=== PATIENT | female | born 1985 | race Caucasian/White ===

== ENCOUNTER 2023-06-09 10:47 | Outpatient (AMB) | payer BC, SELFPAY ==
[2023-06-09 10:51] VITALS: BP 124/68; PULSE 69; O2SAT 100; BMI 32.9
--- NOTE | 2023-06-09 10:51 | MHC.OFFVIS ---
Intake Vital Signs 06/09/23 10:51 Height 5 ft 7 in Weight 210 lb BMI 32.9 BP 124/68 Blood Pressure Location Rt brachial Position Sitting Pulse 69 Pulse Source Pulse Oximeter Pulse Oximetry (%) 100 Oxygen Delivery Method Room Air Intake Visit Reasons: asthma French Folder Required: No Aeronautical Engineer: Aeronautical Engineer offered & declined Accompanied by: Self / Same As Patient Allergies No Known Allergies Allergy (Verified 06/09/23 10:58) Medication List - Last Reconciled 06/09/23 by Denise Cantrell LPN albuterol sulfate 90 mcg/actuation 2 puffs inhalation Q4-6H PRN HPI asthma HPI Details Della is pleasant 37 year old female, never smoker, with underlying asthma. She is 6 weeks , uneventful . She reports symptoms of exercise induced asthma as a child, prescribed albuterol MDI PRN with resolution of symptoms as an adult. She reports symptoms of cough began shortly after section and have continued. She was recently treated with azithromycin and prednisone for bronchitic symptoms, sinus congestion, however notes minimal improvement in symptoms. She denies any wheezing or dyspnea. She has been using an albuterol MDI q 4 hours for persistent chest tightness with resolution in symptoms. She also reports seasonal allergies, managed with OTC medications. She denies any pertinent family history. She denies any occupational exposures. [facility] Social History (Updated 06/09/23 @ 11:01 by Denise Cantrell LPN) Patient Tobacco Use Status: Never used Tobacco Review of Systems Const Denies chills, Denies excessive sweating, Denies fever(s), Denies headache(s) and Denies night sweats Eyes Denies dry eyes, Denies irritation and Denies itchy eyes ENT Reports Normal hearing present, Denies headache(s), Denies nasal congestion, Denies nasal discharge, Denies post nasal drip and Denies sore throat Card Denies chest pain, Denies chest pain at rest, Denies chest pain with activity, Denies claudication, Denies leg edema, Denies orthopnea and Denies paroxysmal nocturnal dyspnea Resp Denies chest congestion, Denies excessive phlegm production, Denies pain on inspiration, Denies pain with cough, Denies stridor and Denies wheezing Musc Denies myalgias Neuro Reports Normal hearing present and Denies headache(s) Endo Denies excessive sweating Francis/Lymph Denies lymphadenopathy Aller/Immun Denies itchy eyes, Denies seasonal rhinorrhea and Denies wheezing Physical Exam Vital Signs: Last Vital Signs Pulse 69 06/09/23 10:51 BP 124/68 06/09/23 10:51 Pulse Ox 100 06/09/23 10:51 Oxygen Delivery Method Room Air 06/09/23 10:51 BMI result Body Mass Index 32.9 Const General: cooperative, healthy appearing, comfortable, no acute distress, well developed and alert Orientation/consciousness: patient oriented x3 Limitations: no limitations HEENT Head: Yes normal to inspection, Yes normocephalic and Yes atraumatic Ears: hearing grossly normal bilaterally and external ears normal Eyes General: appearance normal, both eyes and all related structures Eyelids: Yes eyelids normal Sclerae: sclerae normal EOM: EOMs intact bilaterally Neck Neck: Yes normal visual inspection and Yes no lymphadenopathy Lymphatic: no lymphadenopathy noted Chest Chest palpation & inspection: normal inspection of the chest Resp Other: diminished lung sounds, improved with nebulizer Effort & Inspection: normal respiratory effort, able to speak in complete sentences, no audible wheezes, Actively coughing, no stridor, not tachypneic, no tripod positioning and no use of accessory muscles Auscultation: diminished lung sounds Cardio Jugular venous distension: no JVD Rate: regular rate Rhythm: regular rhythm Skin Other: warm, dry General skin exam: no rashes or lesions noted Neuro General: patient oriented x3 Cranial nerves: Yes Normal hearing present Cognition (Neuro): normal cognition Gait exam (Neuro): Normal gait present Extrem General: Yes normal to inspection, Yes capillary refill normal, Yes no clubbing, cyanosis or edema and Yes no pedal edema Psych Appearance: grossly normal and well kempt Speech and movement: Normal speech and movement present and Clear speech present Affect: normal affect Attitude: cooperative Thought process: Normal thought process present Thought content: Normal thought content present Insight: Good insight present (Psych) Judgement: Good judgement present (Psych) Office Procedures Nebulizer Treatment Nebulizer Treatment [id number]/MDI RX initial, or Nebulizer Subsequent Treatment Office Meds ipratropium 0.5 mg-albuterol 3 mg (2.5 mg base)/3 mL nebulization soln Performing Provider: Gunjan Aranda NP Performing Location: [facility] Administered by: Denise Cantrell LPN on 06/09/23 08:47 Dose Route Admin Location Dispensed Lot Number Expiration Date NDC Stem Sizer 3 mL inhalation 3 mL [id number] 03/21/25 71195-034-08 [employer] Assessment & Plan Assessment & Plan (1) Asthma: Code(s): J45.909 - Unspecified asthma, uncomplicated (2) Environmental allergies: Code(s): Z91.09 - Other allergy status, other than to drugs and biological substances Plan Della's symptoms are likely related to underlying asthma/reactive airway disease. Symptoms improved after nebulizer. Will send for PFT and RAST. Will empirically trial on Symbicort and was given a nebulizer in office today. All questions were answered and patient is in agreement of plan. Will follow up to review results and response to ICS/LABA. Orders: Orders Resp Allergy Profile Region I 06/09/23 Z91.09 - Other allergy status, other than to drugs and biological substances Immunoglobulin E 06/09/23 Z91.09 - Other allergy status, other than to drugs and biological substances Complete Blood Count Auto Diff 06/09/23 J45.909 - Unspecified asthma, uncomplicated, Z91.09 - Other allergy status, other than to drugs and biological substances AMB Nebulizer Treatment 06/09/23 J45.909 - Unspecified asthma, uncomplicated Medications: New albuterol sulfate 2.5 mg (3 mL) inhalation Q4-6H PRN 90 mL 3RF shortness of breath or wheezing budesonide-formoterol 80-4.5 mcg/actuation (Symbicort) 2 puffs inhalation Q12H 10.2 grams 3RF Coding Level of Care Code New Pt Level 4 (05463) Diagnoses Asthma J45.909 Environmental allergies Z91.09 CPT Codes Nebulizer Treatment - Nebulizer Treatment, initial or subsequent: [id number]-Belkraeiz/MDI RX initial, or Nebulizer Subsequent Treatment ([id number])
== END 2023-06-09 13:44 | disposition home or self-care (01) ==
PROVIDERS: PCP Internal Medicine; Referring Provider Physician Assistant Medical; Visit Provider Nurse Practitioner Family
DX: J45.909 Unspecified asthma, uncomplicated (principal); Z91.09 Other allergy status, other than to drugs and biological substances
CPT/HCPCS: 99204

== ENCOUNTER → 2023-06-09 10:47 | Outpatient (BNVA) | payer BC, SELFPAY | PROVIDERS: PCP Internal Medicine; Referring Provider Physician Assistant Medical; Visit Provider Nurse Practitioner Family ==

== ENCOUNTER 2023-06-09 11:48 | Outpatient (REF) | payer BC, SELFPAY ==
[2023-06-09 14:26] LABS: MANUAL DIFF FLAG NO
[2023-06-09 14:30] LABS: Basophils Percent Auto 0.5 % (0-2); Eosinophils Absolute Auto 0.2 X10*3/uL (0.0-0.4); Eosinophils Percent Auto 2.4 % (0-4); Hematocrit 39.4 % (37.0-47.0); Hemoglobin 13.7 g/dl (12.0-16.0); Imm Gran Abs Auto 0.04 X10*3/uL (0.00-0.03); Imm Gran Pct Auto 0.5 % (0.0-0.4); Lymphocytes Absolute Auto 4.2 X10*3/uL (1.2-4.9); Lymphocytes Percent Auto 57.4 % (20-40); Mean Corpuscular HGB Conc 34.8 g/dl (31.0-35.0); Mean Corpuscular Hemoglobin 29.7 pg (27.0-33.0); Mean Corpuscular Volume 85.3 fL (80.0-98.0); Mean Platelet Volume 9.5 fL (9.4-12.3); Monocytes Absolute Auto 0.5 X10*3/uL (0.1-1.2); Monocytes Percent Auto 6.2 % (2-11); Neutrophils Absolute Auto 2.4 x10*3/uL (2.0-8.3); Platelet Count 240 X10*3/uL (160-400); Red Blood Count 4.62 X10*6/uL (4.20-5.50); Red Cell Distribution Width 12.4 % (11.0-16.0); White Blood Count 7.4 X10*3/uL (4.8-10.8)
[2023-06-11 05:14] LABS: Immunoglobulin E 64 kU/L (<OR=114)
[2023-06-11 23:07] LABS: Class Alternaria alternata 0; Class Aspergillus fumigatus 0; Class Bermuda Grass 0; Class Birch 0; Class Cat Dander 0; Class Cladosporium herbarum 0; Class Cockroach 0; Class Common Ragweed 0; Class Cottonwood 0; Class Derm. pterony 0; Class Dermatophagoides farinae 0; Class Dog Dander 0; Class Elm 0; Class Maple Box Elder 0; Class Mountain Cedar 0; Class Mouse Urine Protein 0; Class Mugwort 0; Class Oak 0; Class Penicillium crysogenum 0; Class Rough Pigweed 0; Class Sheep Sorrel 0; Class Sycamore 0; Class Timothy Grass 0; Class Walnut Tree 0; Class White Ash 0; Class White Mulberry 0; D001 IgE D pteronyssinus <0.10 kU/L; D002 - IgE D farinae <0.10 kU/L; E001 - IgE Cat Dander <0.10 kU/L; E005 - IgE Dog Dander <0.10 kU/L; E072-IgE Mouse Urine <0.10 kU/L; G002 IgE Bermuda Grass <0.10 kU/L; G006 - IgE Timothy Grass <0.10 kU/L; I006-IgE Cockroach, German <0.10 kU/L; Immunoglobulin E 67 kU/L (<OR=114); M001 IgE Penicillium chrysogen <0.10 kU/L; M002 - IgE Cladosporium herbar <0.10 kU/L; M003 - IgE Aspergillus fumigat <0.10 kU/L; M006 - IgE Alternaria alternat <0.10 kU/L; T001 IgE Maple/Box Elder <0.10 kU/L; T003 IgE Common Silver Birch <0.10 kU/L; T006 - IgE Cedar, Mountain <0.10 kU/L; T007 - IgE Oak, White <0.10 kU/L; T008 IgE Elm, American <0.10 kU/L; T010 - IgE Walnut <0.10 kU/L; T011 - IgE Maple Leaf Sycamore <0.10 kU/L; T014 - IgE Cottonwood <0.10 kU/L; T015 - IgE Ash, White <0.10 kU/L; T070 - IgE White Mulberry <0.10 kU/L; W001 - IgE Ragweed, Short <0.10 kU/L; W006 - IgE Mugwort <0.10 kU/L; W014 IgE Pigweed, Common <0.10 kU/L; W018 IgE Sheep Sorrel <0.10 kU/L
== END 2023-06-09 11:49 | disposition home or self-care (01) ==
LOC: HO.WFDLDS 11:48
PROVIDERS: Visit Provider Nurse Practitioner Family
DX: J45.909 Unspecified asthma, uncomplicated (principal); Z91.09 Other allergy status, other than to drugs and biological substances
CPT/HCPCS: 36415; 82785; 85025; 86003; 94640

== ENCOUNTER 2023-07-22 10:36 | Outpatient (AMB) | payer BC, SELFPAY ==
--- NOTE | 2023-07-22 09:11 | A.OFFVIS_ITS ---
Intake Vital Signs 07/22/23 10:39 Height 5 ft 7 in Weight 208 lb BMI 32.6 BP 112/62 Blood Pressure Location Lt brachial Position Sitting Pulse 77 Pulse Source Pulse Oximeter Pulse Oximetry (%) 98 Oxygen Delivery Method Room Air Intake Visit Reasons: Asthma Ice Cream Scooper Required: No Youth Development Professional: Youth Development Professional offered & declined Accompanied by: Self / Same As Patient Allergies No Known Allergies Allergy (Verified 07/22/23 10:43) Medication List - Last Reconciled 07/22/23 by Denise Cantrell LPN albuterol sulfate 2.5 mg (3 mL) inhalation Q4-6H PRN albuterol sulfate 90 mcg/actuation 2 puffs inhalation Q4-6H PRN budesonide-formoterol 80-4.5 mcg/actuation (Symbicort) 2 puffs inhalation Q12H HPI Asthma HPI Details Della is pleasant 37 year old female, never smoker, with underlying asthma since childhood. She was recently treated with azithromycin and prednisone for bronchitic symptoms, with minimal improvement in symptoms. At the last visit she was treated with and reports moderate improvement in symptoms but continues with intermittent chest tightness as well as daily use of albuterol. She also reports persistent throat clearing and post nasal drip. Today she presents for close follow up as well as review of RAST. Her PFT is scheduled in 4 weeks. [facility] Social History (Updated 07/22/23 @ 10:44 by Denise Cantrell LPN) Patient Tobacco Use Status: Never used Tobacco Review of Systems Const Denies chills, Denies excessive sweating, Denies fever(s), Denies headache(s) and Denies night sweats Eyes Denies dry eyes, Denies irritation and Denies itchy eyes ENT Reports Normal hearing present, Denies headache(s), Denies nasal congestion, Denies nasal discharge, Denies post nasal drip and Denies sore throat Card Denies chest pain, Denies chest pain at rest, Denies chest pain with activity, Denies claudication, Denies leg edema, Reports dyspnea on exertion, Denies orthopnea and Denies paroxysmal nocturnal dyspnea Resp Denies chest congestion, Denies excessive phlegm production, Denies pain on inspiration, Denies pain with cough, Reports dyspnea on exertion, Denies stridor and Reports wheezing Musc Denies myalgias Neuro Reports Normal hearing present and Denies headache(s) Endo Denies excessive sweating Francis/Lymph Denies lymphadenopathy Aller/Immun Denies itchy eyes, Denies seasonal rhinorrhea and Reports wheezing Physical Exam Vital Signs: Last Vital Signs Pulse 77 07/22/23 10:39 BP 112/62 07/22/23 10:39 Pulse Ox 98 07/22/23 10:39 Oxygen Delivery Method Room Air 07/22/23 10:39 BMI result Body Mass Index 32.6 Const General: cooperative, healthy appearing, comfortable, no acute distress, well developed and alert Orientation/consciousness: patient oriented x3 Limitations: no limitations HEENT Head: Yes normal to inspection, Yes normocephalic and Yes atraumatic Ears: hearing grossly normal bilaterally and external ears normal Eyes General: appearance normal, both eyes and all related structures Eyelids: Yes eyelids normal Sclerae: sclerae normal EOM: EOMs intact bilaterally Neck Neck: Yes normal visual inspection and Yes no lymphadenopathy Lymphatic: no lymphadenopathy noted Chest Chest palpation & inspection: normal inspection of the chest Resp Effort & Inspection: normal respiratory effort, able to speak in complete sentences, no audible wheezes, no cough, no stridor, not tachypneic, no tripod positioning and no use of accessory muscles Auscultation: clear to auscultation bilaterally Cardio Jugular venous distension: no JVD Rate: regular rate Rhythm: regular rhythm Skin Other: warm, dry General skin exam: no rashes or lesions noted Neuro General: patient oriented x3 Cranial nerves: Yes Normal hearing present Cognition (Neuro): normal cognition Gait exam (Neuro): Normal gait present Extrem General: Yes normal to inspection, Yes capillary refill normal, Yes no clubbing, cyanosis or edema and Yes no pedal edema Psych Appearance: grossly normal and well kempt Speech and movement: Normal speech and movement present and Clear speech present Affect: normal affect Attitude: cooperative Thought process: Normal thought process present Thought content: Normal thought content present Insight: Good insight present (Psych) Judgement: Good judgement present (Psych) Assessment & Plan Assessment & Plan (1) Asthma: Code(s): J45.909 - Unspecified asthma, uncomplicated (2) Post-nasal drip: Code(s): R09.82 - Postnasal drip Plan RAST negative. Della reports significant improvements in bronchitic symptoms, however continues with daily albuterol use for chest tigthness and dyspnea. Will increase symbicort to 160 mcg as well as trial ipratropium nasal spray. All questions were answered and patient is in agreement of plan. Will follow up to review PFT and response to increased symbicort dose or sooner if needed. Medications: New budesonide-formoterol 160-4.5 mcg/actuation (Symbicort) 2 puffs inhalation Q12H 10.2 grams 3RF albuterol sulfate 90 mcg/actuation 2 puffs inhalation Q4-6H PRN 1 ea 3RF wheezing ipratropium bromide administer into each nostril 2 sprays intranasal BID 30 mL 3RF albuterol sulfate 90 mcg/actuation 2 puffs inhalation Q4-6H PRN 8.5 grams 3RF shortness of breath or wheezing Coding Level of Care Code Est Pt Level 3 (10781) Diagnoses Asthma J45.909 Post-nasal drip R09.82
[2023-07-22 10:39] VITALS: BP 112/62; PULSE 77; O2SAT 98; BMI 32.6
== END 2023-07-22 11:14 | disposition home or self-care (01) ==
PROVIDERS: PCP Internal Medicine; Visit Provider Nurse Practitioner Family
DX: J45.909 Unspecified asthma, uncomplicated (principal); R09.82 Postnasal drip
CPT/HCPCS: 99213

== ENCOUNTER → 2023-07-22 10:36 | Outpatient (BNVA) | payer BC, SELFPAY | PROVIDERS: PCP Internal Medicine; Visit Provider Nurse Practitioner Family ==

== ENCOUNTER 2023-11-17 10:51 | Outpatient (REF) | payer BC, SELFPAY ==
[2023-11-17 09:47] VITALS: PULSE 76; RESP 16; O2SAT 99
--- NOTE | 2023-11-17 13:44 | PFT_ITS ---
Flows: FEV1: 121 % of predicted at 3.35 L FVC: 119 % of predicted at 4.87 L FEV1/FVC: 83 % Bronchodilator response: Absent Volumes: Total lung capacity: 112 % of predicted at 6.47 L Residual volume: 104 % of predicted at 1.48 L Slow vital capacity: 115 % of predicted at 4.99 L Expiratory reserve volume: 104 % of predicted at 1.47 L Diffusion capacity: Normal Impression: No obstructive or restrictive ventilatory defect. No bronchodilator response. Normal pulmonary function test. MTDD
== END 2023-11-17 10:52 | disposition home or self-care (01) ==
LOC: HO.RESP 10:51
PROVIDERS: PCP Physician Assistant Medical; Visit Provider Nurse Practitioner Family
DX: J45.909 Unspecified asthma, uncomplicated (principal)
CPT/HCPCS: 94010; 94640; 94727; 94729

== ENCOUNTER → 2023-11-17 13:44 | Outpatient (BNV) | payer BC, SELFPAY | PROVIDERS: PCP Physician Assistant Medical; Visit Provider Internal Medicine Pulmonary Disease | DX: J45.909 Unspecified asthma, uncomplicated (principal) | CPT/HCPCS: 94060; 94727; 94729 ==

== ENCOUNTER 2023-12-04 10:45 | Outpatient (AMB) | payer BC, SELFPAY ==
--- NOTE | 2023-12-04 10:49 | A.OFFVIS_ITS ---
Vital Signs 12/04/23 10:50 Height 5 ft 7 in Weight 207 lb 6 oz BMI 32.5 BP 118/76 Blood Pressure Location Lt brachial Position Sitting Pulse 80 Pulse Source Pulse Oximeter Pulse Oximetry (%) 98 Oxygen Delivery Method Room Air Intake Visit Reasons: Asthma Allergies No Known Allergies Allergy (Verified 12/04/23 10:58) HPI HPI Asthma: Details: Della is pleasant 38 year old female, never smoker, with underlying asthma since childhood. Since the last visit, she reports good control of respiratory symptoms. Unfortunately over the last few days has developed sinus pressure and greenish yellow nasal discharge. She denies fevers, chills or sick contacts. She restarted symbicort as she was experiencing chest tightness and dry cough. She has been using ipratropium nasal spray with good effect. Today she presents to review PFT results. Of note, she also reports significantly loud snoring as well as paroxysmal nocturnal dyspnea. Denies prior sleep study. [facility] Social History Patient Tobacco Use Status: Never used Tobacco Review of Systems Const Denies chills, Denies excessive sweating, Denies fever(s), Denies headache(s) and Denies night sweats Eyes Denies dry eyes, Denies irritation and Denies itchy eyes ENT Reports Normal hearing present, Denies headache(s) and Denies nasal congestion Card Denies chest pain, Denies chest pain at rest, Denies chest pain with activity, Denies claudication, Denies leg edema, Denies dyspnea, Denies dyspnea on exertion, Denies orthopnea and Denies paroxysmal nocturnal dyspnea Resp Denies chest congestion, Denies excessive phlegm production, Denies pain on inspiration, Denies pain with cough, Denies dyspnea, Denies dyspnea on exertion, Denies stridor and Denies wheezing Musc Denies myalgias Neuro Reports Normal hearing present and Denies headache(s) Endo Denies excessive sweating Francis/Lymph Denies lymphadenopathy Aller/Immun Denies itchy eyes, Denies seasonal rhinorrhea and Denies wheezing Physical Exam Vital Signs: Last Vital Signs Pulse 80 12/04/23 10:50 BP 118/76 12/04/23 10:50 Pulse Ox 98 12/04/23 10:50 Oxygen Delivery Method Room Air 12/04/23 10:50 BMI result Body Mass Index 32.5 Const General: cooperative, healthy appearing, comfortable, no acute distress, well developed and alert Orientation/consciousness: patient oriented x3 Limitations: no limitations HEENT Head: Yes normal to inspection, Yes normocephalic and Yes atraumatic Ears: hearing grossly normal bilaterally and external ears normal Eyes General: appearance normal, both eyes and all related structures Eyelids: Yes eyelids normal Sclerae: sclerae normal EOM: EOMs intact bilaterally Neck Neck: Yes normal visual inspection and Yes no lymphadenopathy Lymphatic: no lymphadenopathy noted Chest Chest palpation & inspection: normal inspection of the chest Resp Effort & Inspection: normal respiratory effort, able to speak in complete sentences, no audible wheezes, no stridor, not tachypneic, no tripod positioning and no use of accessory muscles Auscultation: clear to auscultation bilaterally Cardio Jugular venous distension: no JVD Rate: regular rate Rhythm: regular rhythm Skin Other: warm, dry General skin exam: no rashes or lesions noted Neuro General: patient oriented x3 Cranial nerves: Yes Normal hearing present Cognition (Neuro): normal cognition Gait exam (Neuro): Normal gait present Extrem General: Yes normal to inspection, Yes capillary refill normal, Yes no clubbing, cyanosis or edema and Yes no pedal edema Psych Appearance: grossly normal and well kempt Speech and movement: Normal speech and movement present and Clear speech present Affect: normal affect Attitude: cooperative Thought process: Normal thought process present Thought content: Normal thought content present Insight: Good insight present (Psych) Judgement: Good judgement present (Psych) Assessment & Plan Assessment & Plan (1) Asthma: Code(s): J45.909 - Unspecified asthma, uncomplicated Category: Medical (2) Post-nasal drip: Code(s): R09.82 - Postnasal drip Category: Medical (3) Paroxysmal nocturnal dyspnea: Code(s): R06.00 - Dyspnea, unspecified Category: Medical Plan Reviewed PFT which revealed normal spirometry and slight elevations in TLC, RV and DLCO which is suggestive of asthma. Overall Della has been doing quite well up until the last few days. Advised to continue symbicort, zyrtec and ipratropium. If symptoms do not improve over the next week or worsen to call the office. Patient reports symptoms suggestive of ASHER, will send for home sleep study. All questions were answered and patient is in agreement of plan. Will follow up to review PFT and response to increased symbicort dose or sooner if needed. Orders: Orders RT home sleep study Today R06.00 - Dyspnea, unspecified Medications: New budesonide-formoterol 80-4.5 mcg/actuation (Symbicort) 1 inh inhalation Q12H 10.2 grams 3RF Coding Level of Care Code Est Pt Level 4 (77569) Diagnoses Asthma J45.909 Post-nasal drip R09.82 Paroxysmal nocturnal dyspnea R06.00
[2023-12-04 10:50] VITALS: BP 118/76; PULSE 80; O2SAT 98; BMI 32.5
== END 2023-12-04 11:38 | disposition home or self-care (01) ==
PROVIDERS: PCP Physician Assistant Medical; Visit Provider Nurse Practitioner Family
DX: J45.909 Unspecified asthma, uncomplicated (principal); R09.82 Postnasal drip; R06.00 Dyspnea, unspecified
CPT/HCPCS: 99214

== ENCOUNTER → 2023-12-04 10:45 | Outpatient (BNVA) | payer BC, SELFPAY | PROVIDERS: PCP Physician Assistant Medical; Visit Provider Nurse Practitioner Family ==

== ENCOUNTER 2024-01-15 09:36 | Outpatient (AMB) | payer OTHER, SELFPAY ==
[2024-01-15 09:38] VITALS: BP 106/78; PULSE 76; O2SAT 98; BMI 32.1
--- NOTE | 2024-01-15 09:38 | A.OFFVIS_ITS ---
Vital Signs 01/15/24 09:38 Height 5 ft 7 in Weight 205 lb BMI 32.1 BP 106/78 Blood Pressure Location Rt brachial Position Sitting Pulse 76 Pulse Source Pulse Oximeter Pulse Oximetry (%) 98 Oxygen Delivery Method Room Air Intake Visit Reasons: asthma/ coughing Allergies No Known Allergies Allergy (Verified 01/15/24 09:44) HPI HPI asthma/ coughing: Details: Della is pleasant 38 year old female, never smoker, with underlying asthma since childhood. Since the last visit, she reports good control of respiratory symptoms. At baseline, she her symptoms have been well controlled with Symbicort 80 mcg. Over the last week patient reported increase in respiratory symptoms. She reports increased chest congestion, chest tightness, wheezing, and productive cough with yellow sputum. She denies fevers chills or sick contacts. She increased back to symbicort 160 mcg last week and has been using albuterol neb/MDI with mild improvement. [facility] Social History (Reviewed 01/15/24 @ 09:44 by Elana Reza [facility]) Patient Tobacco Use Status: Never used Tobacco Review of Systems Const Denies chills, Denies excessive sweating, Denies fever(s), Denies headache(s) and Denies night sweats Eyes Denies dry eyes, Denies irritation and Denies itchy eyes ENT Reports Normal hearing present, Denies headache(s), Denies nasal congestion and Denies sore throat Card Denies chest pain, Denies chest pain at rest, Denies chest pain with activity, Denies claudication, Denies leg edema, Denies orthopnea and Denies paroxysmal nocturnal dyspnea Resp Denies pain on inspiration, Denies pain with cough and Denies stridor Musc Denies myalgias Neuro Reports Normal hearing present and Denies headache(s) Endo Denies excessive sweating Francis/Lymph Denies lymphadenopathy Aller/Immun Denies itchy eyes and Denies seasonal rhinorrhea Physical Exam Vital Signs: Last Vital Signs Pulse 76 01/15/24 09:38 BP 106/78 01/15/24 09:38 Pulse Ox 98 01/15/24 09:38 Oxygen Delivery Method Room Air 01/15/24 09:38 BMI result Body Mass Index 32.1 Const General: cooperative, no acute distress, well developed and alert Orientation/consciousness: patient oriented x3 Limitations: no limitations HEENT Head: Yes normal to inspection, Yes normocephalic and Yes atraumatic Ears: hearing grossly normal bilaterally and external ears normal Eyes General: appearance normal, both eyes and all related structures Eyelids: Yes eyelids normal Sclerae: sclerae normal EOM: EOMs intact bilaterally Neck Neck: Yes normal visual inspection and Yes no lymphadenopathy Lymphatic: no lymphadenopathy noted Chest Chest palpation & inspection: normal inspection of the chest Resp Effort & Inspection: normal respiratory effort, able to speak in complete sentences, no audible wheezes, no stridor, not tachypneic, no tripod positioning and no use of accessory muscles Auscultation: clear to auscultation bilaterally Cardio Jugular venous distension: no JVD Rate: regular rate Rhythm: regular rhythm Skin Other: warm, dry General skin exam: no rashes or lesions noted Neuro General: patient oriented x3 Cranial nerves: Yes Normal hearing present Cognition (Neuro): normal cognition Gait exam (Neuro): Normal gait present Extrem General: Yes normal to inspection, Yes capillary refill normal, Yes no clubbing, cyanosis or edema and Yes no pedal edema Psych Appearance: grossly normal and well kempt Speech and movement: Normal speech and movement present and Clear speech present Affect: normal affect Attitude: cooperative Thought process: Normal thought process present Thought content: Normal thought content present Insight: Good insight present (Psych) Judgement: Good judgement present (Psych) Assessment & Plan Assessment & Plan (1) Asthma: Code(s): J45.909 - Unspecified asthma, uncomplicated Category: Medical (2) Post-nasal drip: Code(s): R09.82 - Postnasal drip Category: Medical Plan Will treat bronchitic symptoms with a zpak and prednisone. Advised patient to continue symbicort 160mcg until next visit. She is aware if symptoms do not improve to call the office and if worsen, seek emergent care. All questions were answered and patient is in agreement of plan. Will follow up for regularly scheduled appointment. Medications: New prednisone 40 mg (2 x 20 mg) PO DAILY 10 tabs 0RF azithromycin For 250 mg dose pack: take 500 mg today (day 1), then 250 mg for 4 days (days 2-5) PO 6 tabs 0RF ipratropium-albuterol 0.5 mg-3 mg(2.5 mg base)/3 mL 3 mL inhalation Q6H PRN 180 mL 0RF wheezing Refilled ipratropium bromide administer into each nostril 2 sprays intranasal BID 30 mL 3RF Coding Level of Care Code Est Pt Level 4 (75743) Diagnoses Asthma J45.909 Post-nasal drip R09.82
== END 2024-01-15 10:13 | disposition home or self-care (01) ==
PROVIDERS: PCP Physician Assistant Medical; Visit Provider Nurse Practitioner Family
DX: J45.909 Unspecified asthma, uncomplicated (principal); R09.82 Postnasal drip
CPT/HCPCS: 99214

== ENCOUNTER → 2024-01-15 09:36 | Outpatient (BNVA) | payer OTHER, SELFPAY | PROVIDERS: PCP Physician Assistant Medical; Visit Provider Nurse Practitioner Family ==

== ENCOUNTER 2024-08-26 09:54 | Outpatient (AMB) | payer BC, SELFPAY ==
[2024-08-26 10:00] VITALS: PULSE 83; O2SAT 97; BMI 30.1
--- NOTE | 2024-08-26 10:00 | MHC.OFFVIS ---
Vital Signs 08/26/24 10:00 Height 5 ft 7 in Weight 192 lb BMI 30.1 Pulse 83 Pulse Source Pulse Oximeter Pulse Oximetry (%) 97 Oxygen Delivery Method Room Air Intake Visit Reasons: Asthma Drafter Detail Required: No Business Development Engineer: Business Development Engineer offered & declined Accompanied by: Self / Same As Patient Allergies No Known Allergies Allergy (Verified 08/26/24 10:02) Medication List - Last Reconciled 08/26/24 by Denise Cantrell LPN albuterol sulfate 90 mcg/actuation 2 puffs inhalation Q4-6H PRN albuterol sulfate 90 mcg/actuation 2 puffs inhalation Q4-6H PRN albuterol sulfate 2.5 mg (3 mL) inhalation Q4-6H PRN budesonide-formoterol 160-4.5 mcg/actuation 2 puffs inhalation Q12H budesonide-formoterol 80-4.5 mcg/actuation 1 inh inhalation Q12H ipratropium bromide 2 sprays intranasal BID ipratropium-albuterol 0.5 mg-3 mg(2.5 mg base)/3 mL 3 mL inhalation Q6H PRN HPI HPI Asthma: Details: Della is pleasant 38 year old female, never smoker, with underlying asthma since childhood. At baseline, she her symptoms have been well controlled with Symbicort 80 mcg however contracted multiple viral infections since the last visit. She reports cold symptoms started mid May progressively worsened ultimately evaluated at urgent care. She was treated with azithromycin with no change in symptoms. Symptoms continued to worsen, went to urgent care again dx with PNA treated with Levaquin and prednisone. Shortly after completing levaquin developed ear infection/sinusitis, treated with Augmentin. During the last two months patient had incresed Symbicort to 160 mcg and used albuterol MDI/neb quite frequently. Over the last two weeks she reports significant improvement in symptoms switching back to Symbicort 80 mcg however continues with intermittent dyspnea. Of note, she has an upcoming consultation with an package checker in September. [facility] Social History Patient Tobacco Use Status: Never used Tobacco Review of Systems Const Denies chills, Denies excessive sweating, Denies fever(s), Denies headache(s) and Denies night sweats Eyes Denies dry eyes, Denies irritation and Denies itchy eyes ENT Reports Normal hearing present, Denies headache(s), Denies nasal congestion, Reports nasal discharge, Reports post nasal drip and Denies sore throat Card Denies chest pain, Denies chest pain at rest, Denies chest pain with activity, Denies claudication, Denies leg edema, Denies dyspnea, Reports dyspnea on exertion, Denies orthopnea and Denies paroxysmal nocturnal dyspnea Resp Denies chest congestion, Reports cough, Denies excessive phlegm production, Denies pain on inspiration, Denies pain with cough, Denies dyspnea, Reports dyspnea on exertion, Denies stridor and Denies wheezing Musc Denies myalgias Neuro Reports Normal hearing present and Denies headache(s) Endo Denies excessive sweating Francis/Lymph Denies lymphadenopathy Aller/Immun Denies itchy eyes, Denies seasonal rhinorrhea and Denies wheezing Physical Exam Vital Signs: Last Vital Signs Pulse 83 08/26/24 10:00 Pulse Ox 97 08/26/24 10:00 Oxygen Delivery Method Room Air 08/26/24 10:00 BMI result Body Mass Index 30.1 Const General: cooperative, healthy appearing, comfortable, no acute distress, well developed and alert Orientation/consciousness: patient oriented x3 Limitations: no limitations HEENT Head: Yes normal to inspection, Yes normocephalic and Yes atraumatic Ears: hearing grossly normal bilaterally and external ears normal Eyes General: appearance normal, both eyes and all related structures Eyelids: Yes eyelids normal Sclerae: sclerae normal EOM: EOMs intact bilaterally Neck Neck: Yes normal visual inspection and Yes no lymphadenopathy Lymphatic: no lymphadenopathy noted Chest Chest palpation & inspection: normal inspection of the chest Resp Effort & Inspection: normal respiratory effort, able to speak in complete sentences, no audible wheezes, no cough, no stridor, not tachypneic, no tripod positioning and no use of accessory muscles Auscultation: clear to auscultation bilaterally Cardio Jugular venous distension: no JVD Rate: regular rate Rhythm: regular rhythm Skin Other: warm, dry General skin exam: no rashes or lesions noted Neuro General: patient oriented x3 Cranial nerves: Yes Normal hearing present Cognition (Neuro): normal cognition Gait exam (Neuro): Normal gait present Extrem General: Yes normal to inspection, Yes capillary refill normal, Yes no clubbing, cyanosis or edema and Yes no pedal edema Psych Appearance: grossly normal and well kempt Speech and movement: Normal speech and movement present and Clear speech present Affect: normal affect Attitude: cooperative Thought process: Normal thought process present Thought content: Normal thought content present Insight: Good insight present (Psych) Judgement: Good judgement present (Psych) Assessment & Plan Assessment & Plan (1) Asthma: Code(s): J45.909 - Unspecified asthma, uncomplicated Category: Medical (2) Post-nasal drip: Code(s): R09.82 - Postnasal drip Category: Medical Plan Advised patient to continue symbicort 160mcg until next visit and refill Flonase. She is aware if symptoms do not improve to call the office and if worsen, seek emergent care. All questions were answered and patient is in agreement of plan. Will follow up after alelrgy consultation or sooner if needed. Medications: New fluticasone propionate 50 mcg/actuation (Flonase Allergy Relief) administer into each nostril 1 spray intranasal DAILY 16 grams 3RF Refilled budesonide-formoterol 160-4.5 mcg/actuation 2 puffs inhalation Q12H 10.2 ea 3RF Coding Level of Care Code Est Pt Level 4 (16168) Diagnoses Asthma J45.909 Post-nasal drip R09.82
--- OUTSIDE RECORDS SUMMARY | 2024-08-26 11:01 | XMS_ITS | Encounter Summary ---
Author Organization [facility] Address [address] [place] [address] Care Team Providers Care Paint Line Production Supervisor Name Role Phone Maame Sesay Primary Care Provider [phone] Encounter Details Date Type Department Care Team (Late st Contact Info) Description 08/26/2024 Telephone Gastroenterology - [address] [place] [address] Charan Marti MD [address] [place] [address] Social History Tobacco Use Types Packs/Day Years Used Date Smoking Tobacco: Never Assessed Comments Unknown Sex and Gender Information Value Date Recorded Sex Assigned at Not on file Legal Sex Female 1:26 PM EDT Gender Identity Not on file Sexual Orientation Not on file documented as of this encounter Progress Notes * Sangeetha Gutierrez - 08/26/2024 9:40 AM EST Pt calling to reschedule procedure, please call documented in this encounter Plan of Treatment Not on file documented as of this encounter Visit Diagnoses Not on filedocumented in this encounter Care Teams Paint Line Production Supervisor Relationship Specialty Start Date End Date Maame Sesay PA [address] [place] [address] PCP - General Physician Fugitive Detective 06/06/24 documented as of this encounter
--- OUTSIDE RECORDS SUMMARY | 2024-08-26 11:01 | XMS_ITS ---
Author Name [facility] Organization Unknown Results Test Name/Text Value Interpretation Date Range Source BUN/Creat SerPl SEE NOTE: Normal [id number] 6 - 22 Q [facility] Creat SerPl-mCnc 0.76mg/dL Normal [id number] 0.5 - 0.97 [facility] ALT SerPl-cCnc 17U/L Normal [id number] 6 - 29 QU EST eGFRcr SerPlBld CKD-EPI 2020 102mL/min/1.73m2 Normal [id number] - [facility] CO2 SerPl-sCnc 30mmol/L Normal [id number] 20 - 32 QU EST AST SerPl-cCnc 14U/L Normal [id number] 10 - 30 QU EST Chloride SerPl-sCnc 105mmol/L Normal [id number] 98 - 11 0 [facility] Bilirub SerPl-mCnc 0.3mg/dL Normal [id number] 0.2 - 1. 2 [facility] Sodium SerPl-sCnc 140mmol/L Normal [id number] 135 - 146 [facility] Potassium SerPl-sCnc 3.9mmol/L Normal [id number] 3.5 - 5.3 [facility] Globulin Ser Calc-mCnc 2.9g/dL(calc) Normal [id number] 1.9 - 3.7 [facility] Albumin/Glob SerPl 1.5(calc) Normal [id number] 1 - 2.5 [facility] BUN SerPl-mCnc 16mg/dL Normal [id number] 7 - 25 QU EST ALP SerPl-cCnc 45U/L Normal [id number] 31 - 125 QU EST Glucose SerPl-mCnc 87mg/dL Normal [id number] 65 - 139 [facility] Calcium SerPl-mCnc 9.1mg/dL Normal [id number] 8.6 - 10 .2 [facility] Albumin SerPl-mCnc 4.4g/dL Normal [id number] 3.6 - 5. 1 [facility] Prot SerPl-mCnc 7.3g/dL Normal [id number] 6.1 - 8.1 Q [facility] TSH SerPl-aCnc 1.77mIU/L Normal QU EST Magnesium SerPl-mCnc 2mg/dL Normal 1.5 - 2.5 [facility]
--- OUTSIDE RECORDS SUMMARY | 2024-08-26 11:01 | XMS_ITS | Clinical Summary ---
Author Organization [facility] Address [address] [place] [address] Care Team Providers Care Citrix Architect Name Role Phone Maame Sesay PA-C Primary Care Provi melchor Allergies No known active allergies Medications Medication Sig Dispensed Refills Start Date End Date Status ipratropium (ATROVENT) 0.03 % nasal spray INSTILL 2 SPRAYS INTO THE NOSTRIL TWICE DAILY 01/15/2024 Active budesonide-formo terol (SYMBICORT) 80-4.5 MCG/ACT inhaler 02/25/2024 Active albuterol (PROVENTIL) (0.083%) 2.5 mg/3 mL nebulizer solution Take 3 mL (2.5 mg total) by nebulization 4 times daily (every 6 hours) as needed for wheezing. Active OMEprazole (PriLOSEC) 20 MG capsule Take 1 capsule (20 mg total) by mouth every morning before breakfast. Active fluticasone (FloNASE) 50 mcg/spray nasal spray 1 spray into each nostril daily. Active vitamin with iron and folic acid ( PLUS) 27-1 MG Tab Take 1 tablet by mouth daily. 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 Gastroesophageal reflux disease without esophagi tis 03/07/2024 Mild persistent asthma without complication 02/20 Allergic rhinitis 03/07/2024 Obesity (BMI 30.0-34.9) 03/07/2024 Family history of colonic polyps 03/07/2024 Endometriosis 03/07/2024 Rectal bleeding 03/07/2024 Family history of breast cancer 03/07/2024 Encounters Date Type Department Care Team Description 08/08/2024 9:15 AM EST Office Visit [address] [phone] Maame Sesay PA-C Congestion of nasal sinus (Primary Dx); Acute cough 08/08/2024 Travel 07/19/2024 9:15 AM EST Office Visit [address] [place] [phone] Lili Bojorquez, YESY Recurrent pneumonia (Primary Dx); Muscle cramping; Non-recurrent acute suppurative otitis media of right ear without spontaneous rupture of tympanic membrane 07/19/2024 Scanned Document [facility] [address] [place] [address] Urgent Care, Scan 07/19/2024 Orders Only [facility] [address] [facility] [place] [address] Lili oBjorquez APRN 07/19/2024 Travel 06/30/[address] [phone] Maame Sesay PA-C 06/10/2024 Orders Only [facility] [address] [place] [address] Primary Care, Scan 06/09/[address] [phone] Maame Sesay PA-C from Last 3 Months Immunizations Name Administration Dates Next Due Tdap 12/20/2022 Family History Medical History Relation Name Comments Hypertension Brother Heart failure Father Hypertension Father Breast cancer Maternal Grandmother Breast cancer Mother Colon polyps Mother Hypertension Mother Hypertension Sister Relation Name Status Comments Brother Father Maternal Grandmother Mother Sister Social History Tobacco Use Types Packs/Day Years Used Date Smoking Tobacco: Never Smokeless Tobacco: Never Tobacco Cessation:Counseling Given: Not Answered Alcohol Use Standard Drinks/Week Comments Yes 0 (1 standard drink = 0.6 oz pur e alcohol) [facility] Utilities Answer Date Recorded In the past 12 months has th e electric, gas, oil, or water company threatened to shut off services in your home? No 07/18/2024 Social Connection and Isolation Panel [NHANES] A nswer Date Recorded In a typical week, how many times do you talk on the phone with family, friends, or neighbors? Twice a week 07/18/2024 Frequency of Social Gatherings with Friends and Family Not on file 07/18/2024 Attends Uatsdin Services Not on file 07/18 Active Member of Clubs or Organizations Not on f ile 07/18/2024 Attends Club or Organization Meetings Not on beverly e 07/18/2024 Marital Status Not on file 07/18/2024 AUDIT-C Answer Date Recorded Q1: How often do you have a drink containing alc ohol? Never 07/18/2024 Average Number of Drinks Not on file 025 Frequency of Binge Drinking Not on file 06/23 PHQ-2 Answer Date Recorded PHQ-2 Total Score 0 03/07/2024 Hunger Vital Sign Answer Date Recorded Within the past 12 months, y ou worried that your food would run out before you got the money to buy more. Never true 07/18/19 25 Within the past 12 months, t he food you bought just didn't last and you didn't have money to get more. Never true 07/18/2024 PRAPARE - Transportation Answer Date Re corded In the past 12 months, has l ack of transportation kept you from medical appointments or from getting medications? No 06/23 In the past 12 months, has l ack of transportation kept you from meetings, work, or from getting things needed for daily living? No 07/18/2024 Housing Stability Vital Sign Answer Elliot e Recorded In the last 12 months, was t here a time when you were not able to pay the mortgage or rent on time? No 07/18/2024 Number of Times Moved in the Last Year Not on fi le 07/18/2024 At any time in the past 12 m [facility], were you homeless or living in a [facility] (including now)? No 07/18/2024 Physical Activity Answer Date Recorded On average, how many days pe r week do you engage in moderate to strenuous exercise (like a brisk walk)? 1 day 03/07/2024 On average, how many minutes do you exercise per day at this level? 40 min 03/07/2024 Education Answer Date Recorded What is the highest level of school you have completed or the highest degree you have received? Master's degree (e.g., MA, MS, Julia, MEd, NAILING MACHINE OPERATOR, JAMES) 07/18/2024 Sex and Gender Information Value Date Recorded Sex Assigned at Female 07/18/2024 3:37 PM EST Gender Identity Female 07/18/2024 3:37 PM EST Sexual Orientation Not on file Last Filed Vital Signs Vital Sign Reading Time Taken Comments Blood Pressure 118/68 08/08/2024 9:27 AM EST Pulse 72 08/08/2024 9:27 AM EST Temperature 36.1 ??C (96.9 ??F) 08/08/2024 9:27 AM ES T Respiratory Rate 17 08/08/2024 9:27 AM EST Oxygen Saturation 98% 08/08/2024 9:27 AM EST Inhaled Oxygen Concentration - - Weight 88 kg (194 lb) 08/08/2024 9:27 AM EST Height 167.6 cm (5' 6 ) 08/08/2024 9:27 AM EST Body Mass Index 31.31 08/08/2024 9:27 AM EST Plan of Treatment Upcoming Encounters Date Type Department Care Team (Late st Contact Info) Description 03/10/2025 8:30 AM EDT Office Visit [address] [place] [phone] Maame Sesay PA-C [address] [place] [address] Health Maintenance Due Date Last Done Comments Pneumococcal Vaccine: Pediatric (0-5 Years) and At-Risk Patients (6 to 49 Years) (1 of 2 - PCV) 09/24/2003 Influenza Vaccine 01/21/2024 HIV Screening 03/07/2025 Postponed from 1997 (Not Indicated) Pap Smear (Ages 21-65) 10/17/2025 3 (Previously Completed) Physical 03/07/2027 03/07/2024 DTaP/Tdap/Td Vaccines (2 - Td or Tdap) 12/20/2032 12/20/2022 COVID-19 Vaccine Discontinued HPV Vaccines Aged Out No longer eligi ble based on patient's age to complete this topic Hepatitis B Vaccines Discontinued Hepatitis C Virus Screening Discontinued Procedures Procedure Name Priority Date/Time Associated Diagnosis Comments POCT QUICKVUE FLU A+B Routine 08/08/2024 9:59 AM EST Congestion of nasal sinus POCT RAPID COVID-19 AG (FDA EUA) Routine 08/08/2024 9:58 AM EST Congestion of nasal sinus COMPREHENSIVE METABOLIC PANEL Routine 07/27/2024 2:21 PM EST Muscle cramping TSH REFLEX TO FREE T4 Routine 07/27/2024 2:21 PM EST Muscle cramping MAGNESIUM Routine 07/27/2024 2:21 PM EST Muscle cramping XR CHEST 2 VIEWS PA/LAT Routine 07/19/2024 10:00 AM EST IMAGING-SCAN Routine 06/09/2024 11:46 AM EST from Last 3 Months Results * POCT QUICKVUE FLU A+B (08/08/2024 9:59 AM EST) Pathologist [facility] INFLUENZ A A ANTIGEN, POC Negative Negative, Indeterminate INFLUENZA B ANTIGEN, POC Negative Negative, Indeterminate Lot Number [id number] Engineering Model Maker Pass Pass Swab, Nasal 08/08/2024 9:59 AM EST Maame Sesay PADavidC POINT OF CA RE TEST ORDERABLES * POCT Rapid COVID-19 Antigen (FDA EUA) (08/08/2024 9:58 AM EST) COVID-19 Rapid Antigen, POC (FDA EUA) Negative Result Comments: A Positive Result does not rule out bacterial infection or co-infection with other viruses. Clinical correlation advised. A Negative Result in symptomatic patients should be considered presumptive and needs confirmation by PCR. Kit Lot Number [id number] Engineering Model Maker Pass Pass Swab, Nasal Specimen from nose / Unknown 08/08/2024 9:58 AM EST Maame Sesay PA-C POINT OF CA RE TEST ORDERABLES * TSH Reflex to Free T4 (07/27/2024 2:21 PM EST) TSH reflex Free T4 1.77 mIU/L [facility] Comment: ?Reference Range ?> or = 20 Years ??0.40-4.50 ? Ranges ?First trimester ?0.26-2.66 ?Second trimester ?? 0.55-2.73 ?Third trimester ?0.43-2.91 Blood Blood specimen / Unknown 07/27/2024 2:21 PM EST 07/27/2024 2:22 PM EST Narrative [facility] - 07/28/2024 6:40 AM EST FASTING:NO FASTING: NO Lili [place] MODELING TEACHER LAB BLOOD ORDERA BLES [employer] [address] [place] [phone] * Magnesium (07/27/2024 2:21 PM EST) Magnesium 2.0 1.5 - 2.5 mg/dL [facility] Blood Blood specimen / Unknown 07/27/2024 2:21 PM EST 07/27/2024 2:22 PM EST Narrative [facility] - 07/28/2024 6:40 AM EST FASTING:NO FASTING: NO Lili Bojorquez MODELING TEACHER LAB BLOOD ORDERA BLES [employer] [address] [place] [address] * Comprehensive Metabolic Panel (07/27/2024 2:21 PM EST) Pathologist [facility] Glucose 87 65 - 139 mg/dL [facility] Comment: ? Non-fasting reference interval Blood Urea Nitrogen (BUN) 16 7 - 25 mg/dL [facility] Creatinine 0.76 0.50 - 0.97 mg/dL [facility] Creatinine w/ eGFR 102 > OR = 60 mL/min/1. 73m2 [facility] BUN/Creatinine Ratio SEE NOTE: (calc) [facility] Comment: ?? Not Reported: BUN and Creatinine are within ?? reference range. ? Sodium 140 135 - 146 mmol/L [facility] Potassium 3.9 3.5 - 5.3 mmol/L [facility] Chloride 105 98 - 110 mmol/L [facility] CO2 30 20 - 32 mmol/L [facility] Calcium 9.1 8.6 - 10.2 mg/dL [facility] Protein, Total 7.3 6.1 - 8.1 g/dL [facility] Albumin 4.4 3.6 - 5.1 g/dL [facility] Globulin 2.9 1.9 - 3.7 g/dL (calc) [facility] Albumin/Globuli n Ratio 1.5 1.0 - 2.5 (calc) [facility] Bilirubin, Total 0.3 0.2 - 1.2 mg/dL [facility] Alkaline Phosphatase 45 31 - 125 U/L [facility] Aspartate Aminotrans (AST) 14 10 - 30 U/L [facility] Alanine Aminotrans (ALT) 17 6 - 29 U/L [facility] Blood 07/27/2024 2:21 PM EST 07/27/2024 2:22 PM EST Narrative [facility] - 07/28/2024 6:40 AM EST FASTING:NO FASTING: NO Lili Reno MODELING TEACHER LAB BLOOD ORDERA BLES [employer] [address] [place] [phone] * XR CHEST 2 VIEWS PA/LAT (07/19/2024 10:00 AM EST) Anatomical Region Laterality Modality Other 07/19/2024 9:45 AM EST 07/19/2024 9:45 AM EST Impressions 07/26/2024 8:09 AM EST Unremarkable examination. Electronically signed by: ??Morgan Escalona MD ??07/26/2024 08:09 AM EST RP Thank you for referring your patient to us, Morgan Escalona MD [phone] (Electronically Signed - 07/26/2024 08:09) Narrative 07/26/2024 8:09 AM EST EXAMINATION: XR CHEST CLINICAL INFORMATION: Recurrent pneumonia COMPARISON: None available. TECHNIQUE: 2 views of the chest were obtained. FINDINGS: No significant abnormality is noted involving the heart, lungs, mediastinum, bony thorax or soft tissues. Procedure Note Morgan Escalona MD - 07/26/2024 EXAMINATION: XR CHEST CLINICAL INFORMATION: Recurrent pneumonia COMPARISON: None available. TECHNIQUE: 2 views of the chest were obtained. FINDINGS: No significant abnormality is noted involving the heart, lungs,mediastinum, bony thorax or soft tissues. IMPRESSION: Unremarkable examination. Electronically signed by: Morgan Escalona MD 07/26/2024 08:09 AM EST RPWorkstation: [id number] Thank you for referring your patient to us, Morgan Escalona MD [phone] (Electronically Signed - 07/26/2024 08:09) Lili [place] MODELING TEACHER IMG LEGACY PROCE DURES * IMAGING-SCAN (06/09/2024 11:46 AM EST) Anatomical Region Laterality Modality Other Scan Primary Care HX AMB PROCEDURES from Last 3 Months Care Teams Citrix Architect Relationship Specialty Start Date End Date Maame Sesay PA-C [address] [place] [address] PCP - General Internal Medicine 03/07/24 Gunjan Aranda Nurse Practitioner Pulmonology-Scan 03/20/24
--- OUTSIDE RECORDS SUMMARY | 2024-08-26 11:01 | XMS_ITS | Clinical Summary ---
Author Organization [facility] [address] [facility] [address] Address [address] [place] [address] Phone Care Team Providers Care Workers Compensation Analyst Name Role Phone Maame Sesay Primary Care Provider [phone] Encounters Date Type Department Care Team Description 08/26/2024 Telephone Gastroenterology - [address] [phone] Charan Marti MD 06/06/2024 Telephone Gastroenterology - [address] [address] Charan Marti MD from Last 3 Months Social History Tobacco Use Types Packs/Day Years Used Date Smoking Tobacco: Never Assessed Comments Unknown Sex and Gender Information Value Date Recorded Sex Assigned at Not on file Legal Sex Female 1:26 PM EDT Gender Identity Not on file Sexual Orientation Not on file Plan of Treatment Health Maintenance Due Date Last Done Comments DTaP,Tdap,and Td Vaccines (1 - Tdap) 09/24/2003 Hepatitis B Vaccines (1 of 3 - 19+ 3-dose series) 09/24/2003 Cervical Cancer Screening: P ap Smear 2005 COVID-19 Vaccine ( - 2023-2 5 season) 2024 Influenza Vaccine (#1) 2024 Depression Screening 04/18/2024 HIV Screening 04/18/2024 Hepatitis C Screening 04/18/2024 Social Influencers of Health Screening 04/18/2024 HIB Vaccines Aged Out No longer eligi ble based on patient's age to complete this topic HPV Vaccines Aged Out No longer eligi ble based on patient's age to complete this topic Hepatitis A Vaccines Aged Out No long er eligible based on patient's age to complete this topic IPV Vaccines Aged Out No longer eligi ble based on patient's age to complete this topic MMR Vaccines Aged Out No longer eligi ble based on patient's age to complete this topic Meningococcal ACWY Vaccine Aged Out N o longer eligible based on patient's age to complete this topic Meningococcal B Vacine Aged Out No lo nger eligible based on patient's age to complete this topic Pneumococcal Vaccine: Pediat rics (0 to 5 Years) and At-Risk Patients (6 to 64 Years) Aged Out No longer eligible b ased on patient's age to complete this topic RSV Immunization Patients Un melchor 20 months Aged Out No longer eligible b ased on patient's age to complete this topic Varicella Vaccines Aged Out No longer eligible based on patient's age to complete this topic Insurance [facility] [place] [id number] Care Teams Workers Compensation Analyst Relationship Specialty Start Date End Date Maame Sesay PA [address] [place] [address] PCP - General Physician Tableau Report Developer 06/06/24
--- OUTSIDE RECORDS SUMMARY | 2024-08-26 11:01 | XMS_ITS | Encounter Summary ---
Author Organization [facility] Address [address] [place] [address] Care Team Providers Care Vendor Management Associate Name Role Phone Maame Sesay PA-C Primary Care Provi melchor Encounter Details Date Type Department Care Team (Latest Contact Info) Description 08/08/2024 Travel Social History Tobacco Use Types Packs/Day Years Used Date Smoking Tobacco: Never Smokeless Tobacco: Never Alcohol Use Standard Drinks/Week Comments Yes 0 (1 standard drink = 0.6 oz pur e alcohol) [facility] Utilities Answer Date Recorded In the past 12 months has [employer] electric, gas, oil, or water company threatened to shut off services in your home? No 07/18/2024 Social Connection and Isolation Panel [NHANES] A nswer Date Recorded In a typical week, how many times do you talk on the phone with family, friends, or neighbors? Twice a week 07/18/2024 Frequency of Social Gatherings with Friends and Family Not on file 07/18/2024 Attends Zoroastrianism Services Not on file 07/18 Active Member [...] any time in the past 12 m [facility], were you homeless or living in a halfway (including now)? No 07/18/2024 Physical Activity Answer [...] Master's degree (e.g., MA, MS, Julia, MEd, ENDOSCOPY NURSE, JAMES) 07/18/2024 Sex and Gender Information Value Date Recorded Sex Assigned at Female 07/18/2024 3:37 PM EST Gender Identity Female 07/18/2024 3:37 PM EST Sexual Orientation Not on file documented as of this encounter Plan of Treatment Upcoming Encounters Date Type Department Care Team (Late st Contact Info) Description 03/10/2025 8:30 AM EDT Office Visit [address] [phone] Maame Sesay PA-C [address] [place] [address] documented as of this encounter Visit Diagnoses Not on filedocumented in this encounter Care Teams Vendor Management Associate Relationship Specialty Start Date End Date Maame Sesay PA-C [address] [place] [address] PCP - General Internal Medicine 03/07/24 Gunjan Aranda Nurse Practitioner Pulmonology-Scan 03/20/24 documented as of this encounter
--- OUTSIDE RECORDS SUMMARY | 2024-08-26 11:01 | XMS_ITS | Encounter Summary ---
Author Organization [address] [address] Care Team Providers Care Locomotive Operator Name Role Phone Pcp, No Primary Care Provider Maame Pastrana PA-C Primary Care Provi melchor Encounter Details Date Type Department Care Team (Late Contact Info) Description 02/05/2024 Scanned Document [address] [phone] Pulmonary, Scan Social History Tobacco Use Types Packs/Day Years Used Date Smoking Tobacco: Never Assessed Sex and Gender Information Value Date Recorded Sex Assigned at Female 07/18/2024 3:37 PM EST Gender Identity Female 07/18/2024 3:37 PM EST Sexual Orientation Not on file documented as of this encounter Plan of Treatment Upcoming Encounters Date Type Department Care Team (Late Contact Info) Description 03/10/2025 8:30 AM EDT Office Visit [address] [phone] Maame Sesay PA-C [address] [place] [address] documented as of this encounter Visit Diagnoses Not on filedocumented in this encounter Care Teams Locomotive Operator Relationship Specialty Start Date End Date Pcp, No PCP - General General Medicine 07/09/23 03/06/24 Maame Sesay PA-C [address] [place], [place] [phone] PCP - General Internal Medicine 03/07/24 Gunjan Aranda Nurse Practitioner Pulmonology-Scan 03/20/24 documented as of this encounter
--- OUTSIDE RECORDS SUMMARY | 2024-08-26 11:01 | XMS_ITS | Encounter Summary ---
Author Organization [facility] Address [address] [place] [id number] Care Team Providers Care Package Worker Name Role Phone Maame Sesay PA-C Primary Care Provi melchor Encounter Details Date Type Department Care Team (Late st Contact Info) Description 07/19/2024 Scanned Document [facility] [address] [place] [phone] Urgent Care, Scan Social History Tobacco Use Types Packs/Day Years Used Date Smoking Tobacco: Never Smokeless Tobacco: Never Alcohol Use Standard Drinks/Week Comments Yes 0 (1 standard drink = 0.6 oz pur e alcohol) [facility] Utilities Answer Date Recorded In the past 12 months has [employer] electric, gas, oil, or water company threatened to shut off services in your home? No 07/18/2024 Social Connection and Isolation Panel [NHANES] A nswer Date Recorded In a typical week, how many times do you talk on the phone with family, friends, or neighbors? Twice a week 07/18/2024 Frequency of Social Gatherings with Friends and Family Not on file 07/18/2024 Attends Restorationism Services Not on file 07/18 Active Member [...] any time in the past 12 m [facility], were you homeless or living in a long-term (including now)? No 07/18/2024 Physical Activity Answer [...] Master's degree (e.g., MA, MS, Julia, MEd, POLICE STENOGRAPHER, JAMES) 07/18/2024 Sex and Gender Information Value Date Recorded Sex Assigned at Female 07/18/2024 3:37 PM EST Gender Identity Female 07/18/2024 3:37 PM EST Sexual Orientation Not on file documented as of this encounter Plan of Treatment Upcoming Encounters Date Type Department Care Team (Late st Contact Info) Description 03/10/2025 8:30 AM EDT Office Visit [address] [phone] Maame Sesay PA-C [address] [place] [address] documented as of this encounter Visit Diagnoses Not on filedocumented in this encounter Care Teams Package Worker Relationship Specialty Start Date End Date Maame Sesay PA-C [address] [place] [address] PCP - General Internal Medicine 03/07/24 Gunjan Aranda Nurse Practitioner Pulmonology-Scan 03/20/24 documented as of this encounter
--- OUTSIDE RECORDS SUMMARY | 2024-08-26 11:01 | XMS_ITS | Encounter Summary ---
Author Organization [facility] Address [address] [place] [address] Care Team Providers Care Propagator Laborer Name Role Phone Maame Sesay PA-C Primary Care Provi melchor Reason for Visit * Reason Comments Follow-up Encounter Details Date Type Department Care Team ([facility] st Contact Info) Description 08/08/2024 9:15 AM EST Office Visit [address] [place] [phone] Maame Sesay PA-C [address] [place], [place] [phone] Congestion of nasal sinus (Primary Dx); Acute cough Social History Tobacco Use Types Packs/Day Years Used Date Smoking Tobacco: Never Smokeless Tobacco: Never Tobacco Cessation:Counseling Given: Not Answered Alcohol Use Standard Drinks/Week Comments Yes 0 (1 standard drink = 0.6 oz pur e alcohol) [facility] Utilities Answer Date Recorded In the past 12 months has [employer], gas, oil, or water company threatened to shut off services in your home? No 07/18/2024 Social Connection and Isolation Panel [NHANES] A nswer Date Recorded In a typical week, how many times do you talk on the phone with family, friends, or neighbors? Twice a week 07/18/2024 Frequency of Social Gatherings with Friends and Family Not on file 07/18/2024 Attends Holiness Services Not on file 07/18 Active Member [...] any time in the past 12 m [facility], were you homeless or living in a [place] [facility] [place] [facility] (including now)? No 07/18/2024 Physical Activity Answer [...] Master's degree (e.g., MA, MS, Julia, MEd, COOK CHEF, JAMES) 07/18/2024 Sex and Gender Information Value Date Recorded Sex Assigned at Female 07/18/2024 3:37 PM EST Gender Identity Female 07/18/2024 3:37 PM EST Sexual Orientation Not on file documented as of this encounter Last Filed Vital Signs Vital Sign Reading [...] Mass Index 31.31 08/08/2024 9:27 AM EST documented in this encounter Progress Notes * Maame Sesay PA-C - 08/08/2024 8:53 AM EST Images from the original note were not included. Assessment & Plan 1. Congestion of nasal sinus/cough Negative for COVID and flu. Most likely viral in nature. No need for antibiotics at this time. Continue supportive measures. She will follow-up with reproductive medicine as well with regards to gppjmkwk-wjg-[id number] medication she can be taking without risk. Should her symptoms not resolve she will reach back out. - POCT Rapid COVID-19 Antigen (FDA EUA) - POCT QUICKVUE FLU A+B With regards to the bleeding. GI canceled her appointment and reschedule her to the end of the month. She states she has not had much of an issue. If she is not she will keep her July appointment if she is she will cancel it and if her symptoms should worsen she will reach back out to them. Patient understands and agrees with the plan of care Return in about 7 months (around 03/08/2025) for ANNUAL EXAM with ME. Communication barriers and lifestyle preferences were addressed with the patient. The care plan including medications and self-management goals were reviewed to the best of the patient???s abilities.All questions and concerns were answered. Patient and/or family verbalized understanding of the plan of care. Subjective Della Brar is a 38 y.o. female who presents for office visit. Chief Complaint Patient presents with Follow-up HPI Della presents to the office today for an urgent visit. Patient was seen in our office on July 19, 2024 for an urgent visit. She was diagnosed with pneumonia back in May 2024. She was initially put on a Z- Julio. The symptoms did not resolve with this and then she was put on Levaquin. Symptoms resolved. Patient went for repeat x-ray on July 19, 2024 which showed no pneumonia. She also had a ear infection of the right ear. She was put on Augmentin for 10 days. She also complained of muscle cramping. It was felt that it could have been due to the Levaquin. Patient had magnesium, TSH and a CMP drawn. All were normal. Since we have last seen her she also started on IVF. 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 Patient states she started Thursday with fever and bodyaches. She has been experiencing some sinus congestion as well. She has not had any smell or taste over the last 2 months. She has been doing tlye-pus-qdecmpg decongestants. She has 2 children who are 1 and 3 years old. Both have been sick as well. She has been using her Flonase and Symbicort. She has been also doing updrafts. She denies any wheezing or shortness of breath. She had rectal bleeding at that time. She was referred to GI-especially with her family history of colon polyps. Current Outpatient Medications Medication Sig Dispense Refill albuterol (PROVENTIL) (0.083%) 2.5 mg/3 mL nebulizer solution Take 3 mL (2.5 mg total) by nebulization 4 times daily (every 6 hours) as needed for wheezing. budesonide-formoterol (SYMBICORT) 80-4.5 MCG/ACT inhaler fluticasone (FloNASE) 50 mcg/spray nasal spray 1 spray into each nostril daily. ipratropium (ATROVENT) 0.03 % nasal spray INSTILL 2 SPRAYS INTO THE NOSTRIL TWICE DAILY OMEprazole (PriLOSEC) 20 MG capsule Take 1 capsule (20 mg total) by mouth every morning before breakfast. vitamin with iron and folic acid ( PLUS) 27-1 MG Tab Take 1 tablet by mouth daily. No current facility-administered medications for this visit. Pertinent History: The patient's past medical, surgical, social, and family history were all reviewed and updated as appropriate. Review of Systems Constitutional: Negative for chills, fatigue and fever. HENT: Positive for postnasal drip, sinus pressure and sinus pain. Negative for congestion, ear discharge, ear pain, mouth sores, rhinorrhea, sneezing, sore throat and trouble swallowing. Eyes: Negative for discharge. Respiratory: Positive for cough. Negative for chest tightness, shortness of breath and wheezing. Musculoskeletal: Negative for arthralgias. Skin: Negative for rash. Objective Vitals: 08/08/24 0927 BP: 118/68 Pulse: 72 Resp: 17 Temp: 96.9 ??F (36.1 ??C) SpO2: 98% Body mass index is 31.31 kg/m??. Physical Exam Vitals reviewed. Constitutional: General: She is not in acute distress. Appearance: Normal appearance. She is not ill-appearing. HENT: Head: Comments: No frontal or maxillary sinus pressure B/L Right Ear: Tympanic membrane normal. Left Ear: Tympanic membrane normal. Ears: Comments: Moderate fluid bilaterally. No redness or bulging of the drums. Mouth/Throat: Mouth: Mucous membranes are moist. Eyes: Conjunctiva/sclera: Conjunctivae normal. Cardiovascular: Rate and Rhythm: Normal rate and regular rhythm. Heart sounds: Normal heart sounds. Pulmonary: Effort: Pulmonary effort is normal. Breath sounds: Normal breath sounds. No wheezing, rhonchi or rales. Musculoskeletal: Cervical back: Neck supple. Lymphadenopathy: Cervical: No cervical adenopathy. Skin: General: Skin is warm and dry. Findings: No rash. Neurological: Mental Status: She is alert. Disclaimer: [employer] voice-recognition is used to prepare this typewritten note. Although each note is personally edited for syntactic and grammatical errors, unintended translational errors can occur.Please contact me if there are any questions about the content of this note. Maame Sesay PA-C documented in this encounter Plan of Treatment Upcoming Encounters Date Type Department Care Team (Late st Contact Info) Description 03/10/2025 8:30 AM EDT Office Visit [address] [place] [phone] Maame Sesay PA-C [address] [place] [address] documented as of this encounter Procedures Procedure Name Priority Date/Time Associated Diagnosis Comments POCT QUICKVUE FLU A+B Routine 08/08/2024 9:59 AM EST Congestion of nasal sinus POCT RAPID COVID-19 AG (FDA EUA) Routine 08/08/2024 9:58 AM EST Congestion of nasal sinus documented in this encounter Results * POCT QUICKVUE FLU A+B (08/08/2024 9:59 AM EST) Pathologist [facility] INFLUENZ A A ANTIGEN, POC Negative Negative, Indeterminate INFLUENZA B ANTIGEN, POC Negative Negative, Indeterminate Lot Number [id number] [employer] Pass Pass Swab, Nasal 08/08/2024 9:59 AM EST Maame Sesay PA-C POINT OF CA RE TEST ORDERABLES * POCT Rapid COVID-19 Antigen (FDA EUA) (08/08/2024 9:58 AM EST) Pathologist [facility] COVID-19 Rapid Antigen, POC (FDA EUA) Negative Result Comments: A Positive Result does not rule out bacterial infection or co-infection with other viruses. Clinical correlation advised. A Negative Result in symptomatic patients should be considered presumptive and needs confirmation by PCR. Kit Lot Number [id number] [employer] Videographer Pass Pass Swab, Nasal Specimen from nose / Unknown 08/08/2024 9:58 AM EST Maame Sesay PA-C POINT OF CA RE TEST ORDERABLES documented in this encounter Visit Diagnoses Diagnosis Congestion of nasal sinus- Primary Other diseases of nasal cavity and sinuses Acute cough documented in this encounter Care Teams Propagator Laborer Relationship Specialty Start Date End Date Maame Sesay PA-C [address] [place] [address] PCP - General Internal Medicine 03/07/24 Gunjan Aranda Nurse Practitioner Pulmonology-Scan 03/20/24 documented as of this encounter
== END 2024-08-26 10:44 | disposition home or self-care (01) ==
PROVIDERS: PCP Physician Assistant Medical; Visit Provider Nurse Practitioner Family
DX: J45.909 Unspecified asthma, uncomplicated (principal); R09.82 Postnasal drip
CPT/HCPCS: 99214